=== PATIENT | female | born 1970 | race Caucasian/White ===

== ENCOUNTER 2022-11-26 11:06 | Observation (INO) ==
--- NOTE | 2022-11-26 12:37 | EKG ---
Test Reason : WEAKNESS, DIZZINESS Blood Pressure : */* mmHG Vent. Rate : 61 BPM Atrial Rate : 61 BPM P-R Int : 116 ms QRS Dur : 86 ms QT Int : 396 ms P-R-T Axes : 2 33 6 degrees QTc Int : 398 ms Normal sinus rhythm Anterior infarct , age undetermined Abnormal ECG No previous ECGs available Referred By: Confirmed By:
[2022-11-26] MEDS: NS 1,000 ML IV 1,000 ML IV SCH (12:45)
[2022-11-26 12:57] LABS: BASOPHILS # (AUTO) 0.1 X10^3/uL (0.0-0.1); BASOPHILS % (AUTO) 0.8 % (0.2-1.0); EOSINOPHILS # (AUTO) 0.2 x10^3/uL (0.0-0.2); EOSINOPHILS % (AUTO) 1.4 % (0.9-2.9); HEMATOCRIT 42.9 % (36.0-47.0); HEMOGLOBIN 14.1 g/dL (12.0-16.0); LYMPHOCYTES # (AUTO) 4.6 X10^3/uL (1.3-2.9); MEAN CORPUSCULAR HEMOGLOBIN 29.8 pg (27.0-34.0); MEAN CORPUSCULAR HGB CONC 32.9 g/dL (33.0-35.0); MEAN CORPUSCULAR VOLUME 90.5 fL (80.0-100.0); MONOCYTES % (AUTO) 8.5 % (0.0-13.0); NEUTROPHILS # (AUTO) 6.3 x10^3/uL (2.2-4.8); NEUTROPHILS % (AUTO) 51.3 % (42.0-75.0); PLATELET COUNT 341 X10^3/uL (150.0-450.0); RED BLOOD COUNT 4.74 X10^6/uL (3.5-5.4); RED CELL DISTRIBUTION WIDTH 14.1 % (11.6-16.5); WHITE BLOOD COUNT 12.2 X10^3/uL (3.6-10.0)
[2022-11-26] MEDS ORDERED: CONSULT PHARMACY - POTASSIUM & MAGNESIUM XX SCH (13:00)
[2022-11-26 13:07] LABS: ALANINE AMINOTRANSFERASE 27 Units/L (12-78); ALBUMIN 3.7 g/dL (3.4-5.0); ALKALINE PHOSPHATASE 99 Units/L (46-116); ASPARTATE AMINO TRANSFERASE 17 Units/L (15-37); BLOOD UREA NITROGEN 28 mg/dL (7-18); CALCIUM 8.8 mg/dL (8.5-10.1); CARBON DIOXIDE 28.7 mmol/L (21-32); CHLORIDE 101 mmol/L (98-107); CREATINE KINASE 91 Units/L (26-192); CREATININE 0.83 mg/dL (0.55-1.02); GLUCOSE 90 mg/dL (65-99); POTASSIUM 4.3 mmol/L (3.5-5.1); SODIUM 137 mmol/L (136-145); TOTAL PROTEIN 7.2 g/dL (6.4-8.2); eGFR NON BLACK RACES > 60 (>60)
[2022-11-26 15:28] LABS: BILIRUBIN,URINE NEGATIVE (NEGATIVE); BLOOD/HEMOGLOBIN,URINE 2+ (NEGATIVE); GLUCOSE, URINE NEGATIVE (NEGATIVE); KETONES,URINE NEGATIVE (NEGATIVE); LEUKOCYTE ESTERASE ,URINE 1+ (NEGATIVE); NITRITES,URINE NEGATIVE (NEGATIVE); PROTEIN,URINE NEGATIVE (NEGATIVE); UROBILINOGEN,URINE NORMAL (NORMAL)
[2022-11-26 15:30] LABS: APPEARANCE,URINE SLIGHTLY HAZY (CLEAR); COLOR,URINE YELLOW (YELLOW)
[2022-11-26 15:39] LABS: BACTERIA,URINE 2+ /HPF (NEGATIVE); SQUAMOUS EPITHELIAL CELL,UR FEW /HPF (NEGATIVE)
[2022-11-26] MEDS: MAG-OX TAB PO SCH (20:26)
--- NOTE | 2022-11-26 23:09 | RAD ---
HISTORYWEAKNESS, FATIGUE, DIZZINESS Relevant Clinical InformationSTUDYCHEST, 1 VIEWCOMPARISONFINDINGSThe trachea is midline. The cardiac silhouette is unremarkable. The lungs are clear without focal infiltrate or effusion. The bony thorax is unremarkable.IMPRESSIONNo acute cardiopulmonary findings .Electronically signed by: Rupesh Mata (Nov 26, 2022 23:08:25)
[2022-11-27] MEDS ORDERED: TYLENOL 325 MG TAB PO PRN (00:06)
[2022-11-27] MEDS: NS 1,000 ML IV 1,000 ML IV SCH ×3 (00:12→15:00)
[2022-11-27 06:28] LABS: BASOPHILS % (AUTO) 0.4 % (0.2-1.0); EOSINOPHILS # (AUTO) 0.2 x10^3/uL (0.0-0.2); EOSINOPHILS % (AUTO) 2.3 % (0.9-2.9); HEMATOCRIT 38.9 % (36.0-47.0); HEMOGLOBIN 13.1 g/dL (12.0-16.0); LYMPHOCYTES # (AUTO) 5.2 X10^3/uL (1.3-2.9); LYMPHOCYTES % (AUTO) 48.8 % (21.0-51.0); MEAN CORPUSCULAR HEMOGLOBIN 30.3 pg (27.0-34.0); MEAN CORPUSCULAR HGB CONC 33.6 g/dL (33.0-35.0); MEAN CORPUSCULAR VOLUME 90.1 fL (80.0-100.0); MEAN PLATELET VOLUME 9.1 fL (7.4-11.0); MONOCYTES # (AUTO) 0.8 x10^3/uL (0.3-0.8); MONOCYTES % (AUTO) 7.8 % (0.0-13.0); NEUTROPHILS # (AUTO) 4.4 x10^3/uL (2.2-4.8); NEUTROPHILS % (AUTO) 40.7 % (42.0-75.0); PLATELET COUNT 310 X10^3/uL (150.0-450.0); RED BLOOD COUNT 4.32 X10^6/uL (3.5-5.4); RED CELL DISTRIBUTION WIDTH 14.3 % (11.6-16.5); WHITE BLOOD COUNT 10.7 X10^3/uL (3.6-10.0)
[2022-11-27 06:39] LABS: ALANINE AMINOTRANSFERASE 24 Units/L (12-78); ALBUMIN 3.1 g/dL (3.4-5.0); ALKALINE PHOSPHATASE 82 Units/L (46-116); ASPARTATE AMINO TRANSFERASE 14 Units/L (15-37); BLOOD UREA NITROGEN 21 mg/dL (7-18); CALCIUM 8.2 mg/dL (8.5-10.1); CHLORIDE 104 mmol/L (98-107); COR CA(FOR HYPOALB) 8.9 mg/dL (8.5-10.1); GLUCOSE 89 mg/dL (65-99); POTASSIUM 4.2 mmol/L (3.5-5.1); SODIUM 138 mmol/L (136-145); TOTAL PROTEIN 6.1 g/dL (6.4-8.2); eGFR NON BLACK RACES > 60 (>60)
[2022-11-27 08:58] VITALS: BMI 51.5
--- NOTE | 2022-11-27 09:15 | DR.UPDATE ---
H&P Update Prescription drug monitoring program results: PDMP reviewed and no concerns identified H&P Reviewed: Yes Any changes to H&P?: Yes Changes noted:: WAS A DIRECT ADMISSION TO THE HOSPITAL DUE TO COMPLAINTS OF GENERALIZED WEAKNESS, DIZZINESS, BLURRED VISION, FATIGUE, GENERALIZED BODY ACHES, AND MYALGIAS. SHE REPORTS THAT HER SYMPTOMS STARTED ABOUT A WEEK AGO. SHE RETURNED TO THE OFFICE ON 11/26 FOR A FOLLOW-UP AND TO REVIEW LABS. SHE REPORTED PERSISTENT SX WITHOUT IMPROVEMENT SINCE LAST WEEK. SHE REPORTS SEVERAL EPISODES OF NEAR SYNCOPE OVER THE LAST WEEK. DECISION WAS MADE TO ADMIT PATIENT FOR FURTHER EVALUATION AND TREATMENT. HER PMH INCLUDES: HTN, ARTHRITIS, PRE-DIABETES, ANXIETY, DEPRESSION, TIBAL LIGATION, BREAST LUMPECTOMY. ON ARRIVAL TO THE HOSPITAL, HER VITALS WERE: 98.0-69-20-94%-165/77. LABS WERE OBTAINED. WBC 12.2, RBC 4.74, HGB 14.1, HCT 42.9, PLT COUNT 341, SODIUM 137, POTASSIUM 4.3, CHLORIDE 101, BUN 28, CREATININE 0.83, GLUCOSE 90, CALCIUM 8.8, MAGNESIUM 2.0, TOTAL BILI 1.60, AST 17, ALT 27, ALK PHOS 99, CREATINE KINASE 91, TROPONIN 6.2, TOTAL PROTEIN 7.2, ALBUMIN 3.7. URINALYSIS WAS OBTAINED AND REVEALED: WBC 3-5, RBC 5-10, LEUKOCYTES 1+, BACTERIA 2+. A URINE CULTURE WAS SET UP. A CHEST XRAY WAS OBTAINED AND REVEALED: NO ACUTE CARDIOPULMONARY FINDINGS. AN EKG WAS OBTAINED AND REVEALED: NORMAL SINUS RHYTHM WITH HR 61 BPM. SHE WAS STARTED ON NORMAL SALINE AT 80 ML/HR, MAG OX 400MG PO HS, AND VITAMIN D 125MCG DAILY. WE WILL RESUME HER HOME MEDICATIONS OF LISINOPRIL 20MG DAILY, HCTZ 12.5MG PO DAILY PRN, AND MELOXICAM 15MG DAILY. WE WILL OBTAIN A BRAIN CT WITHOUT CONTRAST DUE TO DIZZINESS, WEAKNESS, AND NEAR SYNCOPE. OTHERWISE, WE WILL FOLLOW UP WITH AM LABS AND CONTINUE TO MONITOR. TIME SPENT ON CLINICAL ASSESSMENT, REVIEWING LABS AND IMAGING, DECISION MAKING, AND DOCUMENTATION GREATER THAN 75 MINUTES. Patient was examined?: Yes
[2022-11-27] MEDS ORDERED: ZESTRIL TAB 20 MG ONE (09:38)
[2022-11-27] MEDS: HYDROCHLOROTHIAZIDE 12.5 MG CAP PO PRN (09:46)
[2022-11-27] MEDS: MOBIC TAB 15 MG PO SCH (09:46)
[2022-11-27] MEDS: VITAMIN D3 125 mcg (5,000 UNITS) PO SCH (09:46)
[2022-11-27] MEDS: ZESTRIL TAB 20 MG PO SCH (09:46)
[2022-11-27] MEDS: ROCEPHIN VIAL 1 GRAM 1 G in NS 100 ML IV 100 ML IV SCH (10:59)
[2022-11-27] MEDS ORDERED: CORTROSYN IM NR (11:00)
--- NOTE | 2022-11-27 13:20 | PCM.PROG ---
Progress Note - Progress Note for Day of Date of Exam: 11/27/22 - Subjective Subjective: IS CURRENTLY OBSERVATION STATUS FOR TREATMENT OF UTI, GENERALIZED WEAKNESS, NEAR SYNCOPE, DIZZINESS, BLURRED VISION, AND FATIGUE. SHE WAS ADMITTED TO THE HOSPITAL YESTERDAY. TODAY, SHE IS ALERT AND ORIENTED, LYING IN BED ON MORNING ROUNDS. SHE CONTINUES TO COMPLAIN OF GENERALIZED WEAKNESS AND FATIGUE THIS MORNING. SHE DENIES SIGNIFICANT IMPROVEMENT IN SYMPTOMS SINCE ADMISSION. ON EXAMINATION, HEART IS REGULAR IN RATE AND RHYTHM. BILATERAL LUNGS ARE CLEAR TO AUSCULTATION. ABDOMEN IS ROUND, SOFT, AND NOTED WITH SUPRAPUBIC TENDERNESS. NORMAL BOWEL SOUNDS ARE NOTED IN ALL QUADRANTS. GOOD RANGE OF MOTION NOTED TO UPPER AND LOWER EXTREMITIES WITH NO EDEMA NOTED. HER VITALS THIS MOR KOURTNEY ARE: 97.7-64-18-95%-129/72. LABS WERE OBTAINED. WBC 10.7, RBC 4.32, HGB 13.1, HCT 38.9, PLT COUNT 310, SODIUM 138, POTASSIUM 4.2, CHLORIDE 104, BUN 21, CREATININE 0.70, GLUCOSE 89, CALCIUM 8.2, TOTAL BILI 1.50, AST 14, ALT 24, ALK PHOS 82, TOTAL PROTEIN 6.1, ALBUMIN 3.1. DHEA, CORTISOL, AND ACTH ARE PENDING. OUTPATIENT LABS REVEALED A LOW CORTISOL OF 2.7. PRELIMINARY URINE CULTURE IS POSITIVE FOR GRAM NEGATIVE RODS. SHE IS CURRENTLY RECEIVING NORMAL SINUS RHYTHM WITH HR 61 BPM. SHE WAS STARTED ON NORMAL SALINE AT 80 ML/HR, MAG OX 400MG PO HS, AND VITAMIN D 125MCG DAILY. WE WILL RESUME HER HOME MEDICATIONS OF LISINOPRIL 20MG DAILY, HCTZ 12.5MG PO DAILY PRN, AND MELOXICAM 15MG DAILY. DUE TO LOW CORTISOL AND HER SYMPTOMS, WE WILL ORDER AN ACTH SIMULATION TEST. OTHERWISE, WE WILL CONTINUE WITH CURRENT PLAN OF CARE. WE WILL FOLLOW UP WITH AM LABS AND CONTINUE TO MONITOR. TIME SPENT ON CLINICAL ASSESSMENT, REVIEWING LABS AND IMAGING, DECISION MAKING, AND DOCUMENTATION GREATER THAN 45 MINUTES. - Past Medical Family Social History Past Med/Fam/Surg Hx: No changes since H&P Allergies: Allergies No Known Allergies Allergy (Verified 11/26/22 15:47) - Review of Systems ROS: No change since H&P - Vital Signs and I&O's Vital Signs: Vital Signs Temperature 98.1 F Temperature 97.7 F Pulse Rate [Right Brachial] 66 Pulse Rate [Right Brachial] 64 Respiratory Rate 18 Respiratory Rate 18 Blood Pressure [Right Arm] 131/71 Blood Pressure [Right Arm] 129/72 O2 Sat by Pulse Oximetry 95 O2 Sat by Pulse Oximetry 95 Intake and Output: Intake & Output 11/25/22 11/26/22 11/27/22 11/28/22 11:59 11:59 11:59 11:59 Intake Total 1539 / 1539 Balance 1539 / 1539 - Physical Exam Oriented: Normal Eyes: Normal Ear: Normal Nose: Normal Throat: Normal Respiratory: Normal Cardiovascular: Normal : Normal Auscultation: Bowel Sounds: Normal Palpation: Normal Tenderness: Suprapubic, Mild Skin: Normal Musculoskeletal: Normal Psychiatric: Normal Mood Description: Calm Affect: Normal Speech Pattern: Clear, Appropriate - Laboratory and Diagnostics Result Diagrams: 11/27/22 05:44 11/27/22 05:44 Labs: 11/26/22 15:00 Urine,Clean Catch Urine Culture - Preliminary Laboratory WBC 10.7 X10^3/uL (3.6-10.0) H 11/27/22 05:44 RBC 4.32 X10^6/uL (3.5-5.4) 11/27/22 05:44 Hgb 13.1 g/dL (12.0-16.0) 11/27/22 05:44 Hct 38.9 % (36.0-47.0) 11/27/22 05:44 MCV 90.1 fL (80.0-100.0) 11/27/22 05:44 MCH 30.3 pg (27.0-34.0) 11/27/22 05:44 MCHC 33.6 g/dL (33.0-35.0) 11/27/22 05:44 RDW 14.3 % (11.6-16.5) 11/27/22 05:44 Plt Count 310 X10^3/uL (150.0-450.0) 11/27/22 05:44 MPV 9.1 fL (7.4-11.0) 11/27/22 05:44 Neut % (Auto) 40.7 % (42.0-75.0) L 11/27/22 05:44 Lymph % (Auto) 48.8 % (21.0-51.0) 11/27/22 05:44 Schley % (Auto) 7.8 % (0.0-13.0) 11/27/22 05:44 Eos % (Auto) 2.3 % (0.9-2.9) 11/27/22 05:44 Baso % (Auto) 0.4 % (0.2-1.0) 11/27/22 05:44 Neut # (Auto) 4.4 x10^3/uL (2.2-4.8) 11/27/22 05:44 Lymph # (Auto) 5.2 X10^3/uL (1.3-2.9) H 11/27/22 05:44 Schley # (Auto) 0.8 x10^3/uL (0.3-0.8) 11/27/22 05:44 Eos # (Auto) 0.2 x10^3/uL (0.0-0.2) 11/27/22 05:44 Baso # (Auto) 0.0 X10^3/uL (0.0-0.1) 11/27/22 05:44 Absolute Nucleated RBC 0.1 /100WBC 11/27/22 05:44 Sodium 138 mmol/L (136-145) 11/27/22 05:44 Corrected Sodium TNP 11/27/22 05:44 Potassium 4.2 mmol/L (3.5-5.1) 11/27/22 05:44 Chloride 104 mmol/L (98-107) 11/27/22 05:44 Carbon Dioxide 27.0 mmol/L (21-32) 11/27/22 05:44 BUN 21 mg/dL (7-18) H 11/27/22 05:44 Creatinine 0.70 mg/dL (0.55-1.02) 11/27/22 05:44 Est GFR (MDRD) Af Amer > 60 (>60) 11/27/22 05:44 Est GFR (MDRD) Non-Af > 60 (>60) 11/27/22 05:44 Glucose 89 mg/dL (65-99) 11/27/22 05:44 Calcium 8.2 mg/dL (8.5-10.1) L 11/27/22 05:44 Corrected Calcium 8.9 mg/dL (8.5-10.1) 11/27/22 05:44 Magnesium 2.0 mg/dL (2.0-2.9) 11/26/22 12:40 Total Bilirubin 1.50 mg/dL (0.2-1.0) H 11/27/22 05:44 AST 14 Units/L (15-37) L 11/27/22 05:44 ALT 24 Units/L (12-78) 11/27/22 05:44 Alkaline Phosphatase 82 Units/L (46-116) 11/27/22 05:44 Creatine Kinase 91 Units/L (26-192) 11/26/22 12:40 Troponin I High Sens 6.2 ng/L (4.0-60.0) 11/26/22 12:40 Total Protein 6.1 g/dL (6.4-8.2) L 11/27/22 05:44 Albumin 3.1 g/dL (3.4-5.0) L 11/27/22 05:44 Globulin 3.0 g/dL (2.5-4.5) 11/27/22 05:44 Albumin/Globulin Ratio 1.0 Ratio (1.1-2.1) L 11/27/22 05:44 Free Cortisol Cancelled 11/27/22 08:17 Specimen Type Clean catch urine 11/26/22 15:00 Urine Color Yellow (YELLOW) 11/26/22 15:00 Urine Appearance Slightly hazy (CLEAR) 11/26/22 15:00 Urine pH 6.0 (5.0 - 8.0) 11/26/22 15:00 Ur Specific Heron 1.025 (1.000-1.030) 11/26/22 15:00 Urine Protein Negative (NEGATIVE) 11/26/22 15:00 Urine Glucose (UA) Negative (NEGATIVE) 11/26/22 15:00 Urine Ketones Negative (NEGATIVE) 11/26/22 15:00 Urine Blood 2+ (NEGATIVE) 11/26/22 15:00 Urine Nitrite Negative (NEGATIVE) 11/26/22 15:00 Urine Bilirubin Negative (NEGATIVE) 11/26/22 15:00 Urine Urobilinogen Normal (NORMAL) 11/26/22 15:00 Ur Leukocyte Esterase 1+ (NEGATIVE) 11/26/22 15:00 Urine RBC 5-10 /HPF (0-3) A 11/26/22 15:00 Urine WBC 3-5 /HPF (0-5) 11/26/22 15:00 Ur Squamous Epith Cells Few /HPF (NEGATIVE) 11/26/22 15:00 Urine Bacteria 2+ /HPF (NEGATIVE) 11/26/22 15:00 Urine Mucus Few /HPF (NEGATIVE) 11/26/22 15:00 Ur Culture Indicated? Yes/culture set up 11/26/22 15:00 - Plan (1) Urinary tract infection Status: Acute Qualifiers: Urinary tract infection type: acute cystitis Hematuria presence: with hematuria Qualified Code(s): N30.01 - Acute cystitis with hematuria Plan: NORMAL SALINE AT 80 ML/HR, MAG OX 400MG PO HS, AND VITAMIN D 125MCG DAILY. WE WILL RESUME HER HOME MEDICATIONS OF LISINOPRIL 20MG DAILY, HCTZ 12.5MG PO DAILY PRN, AND MELOXICAM 15MG DAILY. (2) Generalized weakness Status: Acute (3) Near syncope Status: Acute (4) Fatigue Status: Acute Qualifiers: Fatigue type: unspecified Qualified Code(s): R53.83 - Other fatigue (5) Low serum cortisol level Status: Acute Plan: ACTH STIMULATION TEST (6) Vitamin D deficiency Status: Acute Plan: VITAMIN D 125MCG DAILY (7) HTN (hypertension) Status: Chronic Qualifiers: Hypertension type: primary hypertension Qualified Code(s): I10 - Essential (primary) hypertension Plan: CONTINUE LISINOPRIL AND HCTZ
[2022-11-27] MEDS: MAG-OX TAB PO SCH (20:35)
[2022-11-28] MEDS: NS 1,000 ML IV 1,000 ML IV SCH (04:09)
[2022-11-28 06:14] LABS: BASOPHILS # (AUTO) 0.1 X10^3/uL (0.0-0.1); BASOPHILS % (AUTO) 0.6 % (0.2-1.0); EOSINOPHILS # (AUTO) 0.2 x10^3/uL (0.0-0.2); EOSINOPHILS % (AUTO) 2.3 % (0.9-2.9); HEMATOCRIT 39.1 % (36.0-47.0); HEMOGLOBIN 12.7 g/dL (12.0-16.0); LYMPHOCYTES % (AUTO) 46.7 % (21.0-51.0); MEAN CORPUSCULAR HEMOGLOBIN 29.3 pg (27.0-34.0); MEAN CORPUSCULAR HGB CONC 32.5 g/dL (33.0-35.0); MEAN CORPUSCULAR VOLUME 90.2 fL (80.0-100.0); MEAN PLATELET VOLUME 9.2 fL (7.4-11.0); MONOCYTES % (AUTO) 9.3 % (0.0-13.0); NEUTROPHILS # (AUTO) 4.4 x10^3/uL (2.2-4.8); NEUTROPHILS % (AUTO) 41.1 % (42.0-75.0); PLATELET COUNT 316 X10^3/uL (150.0-450.0); RED BLOOD COUNT 4.34 X10^6/uL (3.5-5.4); WHITE BLOOD COUNT 10.7 X10^3/uL (3.6-10.0)
[2022-11-28 06:24] LABS: ALANINE AMINOTRANSFERASE 20 Units/L (12-78); ALBUMIN 3.1 g/dL (3.4-5.0); ALKALINE PHOSPHATASE 80 Units/L (46-116); ASPARTATE AMINO TRANSFERASE 13 Units/L (15-37); BLOOD UREA NITROGEN 17 mg/dL (7-18); CALCIUM 8.4 mg/dL (8.5-10.1); CARBON DIOXIDE 29.8 mmol/L (21-32); CHLORIDE 104 mmol/L (98-107); COR CA(FOR HYPOALB) 9.1 mg/dL (8.5-10.1); CREATININE 0.62 mg/dL (0.55-1.02); GLUCOSE 89 mg/dL (65-99); POTASSIUM 4.1 mmol/L (3.5-5.1); SODIUM 140 mmol/L (136-145); eGFR NON BLACK RACES > 60 (>60)
[2022-11-28] MEDS ORDERED: ZESTRIL TAB 20 MG ONE (08:22)
[2022-11-28 08:34] VITALS: BP 124/63; PULSE 65; RESP 18; TEMP 98.1; O2SAT 97
[2022-11-28] MEDS: ROCEPHIN VIAL 1 GRAM 1 G in NS 100 ML IV 100 ML IV SCH (08:57)
[2022-11-28] MEDS: MOBIC TAB 15 MG PO SCH (08:58)
[2022-11-28] MEDS: HYDROCHLOROTHIAZIDE 12.5 MG CAP PO PRN (08:58)
[2022-11-28] MEDS: VITAMIN D3 125 mcg (5,000 UNITS) PO SCH (08:58)
[2022-11-28] MEDS: ZESTRIL TAB 20 MG PO SCH (08:59)
== END 2022-11-28 12:20 | disposition home or self-care (01) ==
LOC: MED/SURG
PROVIDERS: ADMIT Internal Medicine; ATTEND Internal Medicine
DX: B96.89 Other specified bacterial agents as the cause of diseases classified elsewhere; E55.9 Vitamin D deficiency, unspecified; R55 Syncope and collapse; H53.8 Other visual disturbances; I10 Essential (primary) hypertension; N30.01 Acute cystitis with hematuria; R42 Dizziness and giddiness; R53.1 Weakness; R53.83 Other fatigue; E27.8 Other specified disorders of adrenal gland